=== PATIENT | female | born 1990 | race Caucasian/White ===

== ENCOUNTER 2020-04-16 15:22 | Inpatient (IN) | payer OTHER ==
[~2020-04-16] VITALS: Ht 167.6 cm; Wt 75.5 kg
[2020-04-16 15:28] VITALS: BP 114/72
[2020-04-16] MEDS ORDERED: FENTANYL PF 100 MCG/2ML IV PRN (16:00)
[2020-04-16] MEDS ORDERED: OXYTOCIN 30U/ 0.9% NaCL 500ML 500 ML IV ONE (16:00)
[2020-04-16] MEDS: D5%-LACTATED RINGERS 1,000 ML IV SCH (16:00)
[2020-04-16] MEDS ORDERED: CALCIUM CARBONATE 500 MG TAB.CHEW PO PRN (16:00)
[2020-04-16] MEDS ORDERED: TERBUTALINE 1 MG/ML, 1ML SQ PRN (16:00)
[2020-04-16] MEDS ORDERED: ONDANSETRON 2MG/ML, 2ML IVPush PRN (16:00)
[2020-04-16] MEDS ORDERED: TERBUTALINE 1 MG/ML, 1ML IVPush PRN (16:00)
[2020-04-16] MEDS ORDERED: FENTANYL PF 100 MCG/2ML IVPush PRN (16:00)
[2020-04-16 16:13] LABS: BASOPHILS % (AUTO) 1 % (0-1); EOSINOPHILS % (AUTO) 1 % (1-7); LYMPHOCYTES % (AUTO) 20 % (22-44); MEAN CORPUSCULAR HEMOGLOBIN 31.4 pg (27.0-34.8); MEAN CORPUSCULAR HGB CONC 34.6 g/dL (32.4-35.8); MEAN PLATELET VOLUME 8.5 fL (7.4-10.4); MONOCYTES % (AUTO) 7 % (2-9); NEUTROPHILS % (AUTO) 72 % (42-75); PLATELET COUNT 255 x10^3/uL (130-400); RED BLOOD COUNT 4.32 x10^6/uL (3.82-5.3); RED CELL DISTRIBUTION WIDTH 13.6 % (9.6-15.2)
[2020-04-16] MEDS: LACTATED RINGERS 1,000 ML IV SCH ×2 (16:15→22:14)
[2020-04-16 16:17] LABS: MD NO
[2020-04-16] MEDS ORDERED: MISOPROSTOL 200 MCG TABLET ONE (16:31)
[2020-04-16] MEDS ORDERED: NEWBORN KIT ONE (16:31)
[2020-04-16] MEDS ORDERED: LIDOCAINE 1%, 20ML ONE (16:31)
[2020-04-16] MEDS ORDERED: OXYTOCIN 30U/ 0.9% NaCL 500ML 500 ML ONE (16:32)
[2020-04-16] MEDS ORDERED: FENTANYL PF 500 MCG, BUPIVACAINE/PF 0.5%, 30ML 62.5 ML in SODIUM CHLORIDE 0.9% 177.5 ML EPIDCONT SCH ×2 (18:30→19:00)
[2020-04-16] MEDS ORDERED: TERBUTALINE 1 MG/ML, 1ML ONE (22:19)
[2020-04-16] MEDS ORDERED: BUPIVACAINE 0.25% ONE (22:30)
[2020-04-17] MEDS: D5%-LACTATED RINGERS 1,000 ML IV SCH
[2020-04-17] MEDS ORDERED: SIMETHICONE 80 MG CHEW TAB PO PRN (00:30)
[2020-04-17] MEDS ORDERED: OXYcodone/APAP 5/325MG TABLET PO PRN (00:30)
[2020-04-17] MEDS ORDERED: MISOPROSTOL 200 MCG TABLET PR PRN (00:30)
[2020-04-17] MEDS ORDERED: OXYTOCIN 30U/ 0.9% NaCL 500ML 500 ML IV SCH (00:30)
[2020-04-17] MEDS ORDERED: ONDANSETRON 2MG/ML, 2ML IV PRN (00:30)
[2020-04-17] MEDS ORDERED: ACETAMINOPHEN 325 MG TABLET PO PRN (00:30)
[2020-04-17] MEDS ORDERED: CALCIUM CARBONATE 500 MG TAB.CHEW PO PRN (00:30)
[2020-04-17 02:30] VITALS: BP 101/67
[2020-04-17] MEDS: IBUPROFEN 600 MG TABLET PO PRN ×3 (06:20→19:02)
[2020-04-17 07:40] VITALS: BP 99/67
[2020-04-17 07:47] LABS: BASOPHILS % (AUTO) 0 % (0-1); EOSINOPHILS % (AUTO) 0 % (1-7); LYMPHOCYTES % (AUTO) 13 % (22-44); MEAN CORPUSCULAR HEMOGLOBIN 31.7 pg (27.0-34.8); MEAN CORPUSCULAR HGB CONC 34.3 g/dL (32.4-35.8); MEAN PLATELET VOLUME 8.8 fL (7.4-10.4); MONOCYTES % (AUTO) 8 % (2-9); NEUTROPHILS % (AUTO) 79 % (42-75); PLATELET COUNT 229 x10^3/uL (130-400); RED CELL DISTRIBUTION WIDTH 13.7 % (9.6-15.2)
[2020-04-17] MEDS: DOCUSATE 100 MG CAPSULE PO PRN (08:33)
[2020-04-17] MEDS: PRENATAL VIT/IRON/FA 1 EACH TABLET PO SCH (08:33)
[2020-04-17 08:54] LABS: MD SCAN
[2020-04-17 12:00] VITALS: BP 100/64
[2020-04-17 16:30] VITALS: BP 107/70
[2020-04-17 20:27] VITALS: BP 110/73
[2020-04-18 08:12] VITALS: BP 105/73
[2020-04-18] MEDS: DOCUSATE 100 MG CAPSULE PO PRN (10:45)
[2020-04-18] MEDS: PRENATAL VIT/IRON/FA 1 EACH TABLET PO SCH (10:45)
[2020-04-18] MEDS ORDERED: IBUP-1222 PO (10:46)
[2020-04-18] MEDS ORDERED: DOCU-131 PO (10:47)
== END 2020-04-18 15:36 | disposition home or self-care (01) | DRG 807 ==
LOC: LDOP 15:22 → LDIP 15:58 → 2NW 04-17 02:10
PROVIDERS: ADMIT Obstetrics & Gynecology; ATTEND Obstetrics & Gynecology
PROC: 10E0XZZ Delivery of Products of Conception, External Approach (ICD-10-PCS; principal; 2020-04-17)
PROC: 0KQM0ZZ Repair Perineum Muscle, Open Approach (ICD-10-PCS; 2020-04-17)
PROC: 10907ZC Drainage of Amniotic Fluid, Therapeutic from Products of Conception, Via Natural or Artificial Opening (ICD-10-PCS; 2020-04-17)
PROC: 3E0R3BZ Introduction of Anesthetic Agent into Spinal Canal, Percutaneous Approach (ICD-10-PCS; 2020-04-17)
PROC: 3E0R33Z Introduction of Anti-inflammatory into Spinal Canal, Percutaneous Approach (ICD-10-PCS; 2020-04-17)
DX: O24.420 Gestational diabetes mellitus in childbirth, diet controlled (principal); Z37.0 Single live birth; O70.1 Second degree perineal laceration during delivery; O76 Abnormality in fetal heart rate and rhythm complicating labor and delivery; Z3A.37 37 weeks gestation of pregnancy; Z20.828 Contact with and (suspected) exposure to other viral communicable diseases
CPT/HCPCS: 36415; 82962; 85025; 86592; 86850; 86900; 87635; G0378; J2590; J7120